=== PATIENT | female | born 1945 | race African-American/Black ===

== ENCOUNTER 2019-09-04 18:12 | Emergency (ER) | payer OTHER ==
[2019-09-04 18:18] VITALS: BP 90/50; PULSE 78; TEMP 98; BMI 24.7
[2019-09-04] MEDS ORDERED: diphenhydrAMINE HCL 25 MG CAPSULE (FP) PO ONE ×2 (18:18→18:22)
--- NOTE | 2019-09-04 18:19 | PDOC ---
Rapid Medical Evaluation Time Seen by Provider: 09/04/19 18:16 Medical Evaluation: Allergies Allergy/AdvReac Type Severity Reaction Status Date / Time No Known Allergies Allergy Verified 08/05/16 12:40 09/04/19 18:16 I have performed a brief in-person evaluation of this patient. The patient presents with a chief complaint of: itchy rash, upset stomach, vomiting. only itchy skin now Pertinent physical exam findings:stable and in NAD, non-focal I have ordered the following: benadryl The patient will proceed to the ED for further evaluation.
[2019-09-04] MEDS ORDERED: DEXAMETHASONE LIQUID 0.5 MG/5 ML PO ONE (19:34)
--- NOTE | 2019-09-04 19:37 | PDOC ---
History of Present Illness - General Chief Complaint: Rash Stated Complaint: ALLERGIC REACTION Time Seen by Provider: 09/04/19 18:16 - History of Present Illness Initial Comments: 09/04/19 19:34 74-year-old female with a past medical history of DVTs and pulmonary emboli hypothyroidism presents for evaluation of rash x1 day. First noticed after a dental cleaning which occurred this morning Past History - Past Medical History Allergies/Adverse Reactions: Allergies Allergy/AdvReac Type Severity Reaction Status Date / Time No Known Allergies Allergy Verified 09/04/19 18:18 Home Medications: Ambulatory Orders Acyclovir [Zovirax -] 400 mg PO PEDRO 08/05/16 Levothyroxine Sodium [Synthroid] 75 mcg PO DAILY 08/05/16 Magnesium 500 mg PO DAILY 08/05/16 Enoxaparin [Lovenox -] 70 mg SQ Q12H #60 disp.syrin 08/08/16 Anemia: No Asthma: No Cancer: No Cardiac Disorders: No CVA: No COPD: No CHF: No Dementia: No Diabetes: No GI Disorders: No Disorders: No HTN: No Hypercholesterolemia: No Liver Disease: No Seizures: No Thyroid Disease: Yes (HYPO) Other medical history: BLOOD CLOTS - Surgical History Abdominal Surgery: No Appendectomy: No Cardiac Surgery: No Cholecystectomy: Yes Lung Surgery: No Neurologic Surgery: No Orthopedic Surgery: No - Psycho Social/Smoking Cessation Hx Smoking Status: No Smoking History: Never smoked Have you smoked in the past 12 months: No Number of Cigarettes Smoked Daily: 0 If you are a former smoker, when did you quit?: 30 YRS AGO Hx Alcohol Use: Yes (SOCIAL) Drug/Substance Use Hx: No Substance Use Type: None Hx Substance Use Treatment: No Review of Systems - Review of Systems Constitutional: No: Fever HEENTM: No: Throat Pain, Throat Swelling, Difficulty Swallowing, Mouth Swelling Integumentary: Yes: Pruritus, Rash *Physical Exam - Vital Signs Last Vital Signs Temp Pulse Resp BP Pulse Ox 98 F 78 18 90/50 L 98 09/04/19 18:14 09/04/19 18:14 09/04/19 18:14 09/04/19 18:14 09/04/19 18:14 - Physical Exam Comments: 09/04/19 19:35 GENERAL: The patient is awake, alert, and fully oriented, in no acute distress. HEAD: Normal with no signs of trauma. EYES: sclera anicteric, conjunctiva clear. ENT: Ears normal NECK: Normal range of motion LUNGS: Breath sounds equal, clear to auscultation bilaterally. No wheezes, and no crackles. HEART: S1 and S2 without murmur, rub or gallop. ABDOMEN: Soft, nontender, normoactive bowel sounds. No guarding, no rebound. No masses. EXTREMITIES: Normal range of motion, no edema. No clubbing or cyanosis. No cords, erythema, or tenderness. NEUROLOGICAL: Cranial nerves II through XII grossly intact. Normal speech, normal gait. PSYCH: Normal mood, normal affect. SKIN: Warm, Dry, normal turgor, resolving wheals about the left flank ED Treatment Course - Medications Given in the ED: ED Medications Discontinued Medications Generic Name Dose Route Start Last Admin Trade Name Freq PRN Reason Stop Dose Admin Diphenhydramine HCl 25 mg 09/04/19 18:18 09/04/19 18:24 Benadryl - PO 09/04/19 18:19 25 mg ONCE ONE Administration Medical Decision Making - Medical Decision Making 09/04/19 19:35 Allergic rash we will treat with Decadron in the emergency room follow-up with primary care physician discussed use of Zyrtec at home and set of Benadryl which she is on board with Discharge - Discharge Information Problems reviewed: Yes Clinical Impression/Diagnosis: Allergic rash present on examination Condition: Stable Disposition: HOME - Admission No - Follow up/Referral Referrals: Haja Kowalski MD [Primary Care Provider] - - Patient Discharge Instructions Additional Instructions: Return to the emergency room for worsening symptoms. Without fail please follow -up with your primary care physician in 1 to 2 days for further evaluation and treatment options. Continue with Zyrtec at home as directed he was treated with a long-acting steroid and should require only treatment for itching which the antihistamine will help - Post Discharge Activity
[2019-09-04] MEDS ORDERED: DEXAMETHASONE SOD PHOSPHATE 10 MG/1 ML VIAL ONE (19:38)
== END 2019-09-04 19:48 | disposition home or self-care (01) ==
LOC: JERFT 18:12
DX: L23.89 Allergic contact dermatitis due to other agents (principal)
CPT/HCPCS: 99281-25

== ENCOUNTER 2021-12-07 15:27 | Observation (INO) | payer OTHER ==
[2021-12-07 16:20] LABS: EOS % 1.1 % (0-4.5); HEMATOCRIT 38.9 % (32.4-45.2); HEMOGLOBIN 12.8 GM/dL (10.7-15.3); LYMPH % 32.6 % (8-40); MCH 31.2 pg (25.7-33.7); MCHC 32.8 g/dl (32.0-36.0); MEAN CELL VOLUME 95.2 fl (80-96); MEAN PLT VOLUME 9.1 fl (7.5-11.1); MONO % 6.7 % (3.8-10.2); NEUT % 58.6 % (42.8-82.8); PLATELET COUNT 167 10^3/uL (134-434); RBC 4.09 M/mm3 (3.60-5.2); WHITE BLOOD COUNT 5.7 K/mm3 (4.0-10.0)
[2021-12-07] MEDS: SODIUM CHLORIDE 1,000 ML IV SCH (16:27)
[2021-12-07 16:40] LABS: MAGNESIUM 2.2 mg/dL (1.8-2.4)
[2021-12-07 16:41] LABS: ALBUMIN 3.9 g/dl (3.4-5.0); BLOOD UREA NITROGEN 14.9 mg/dL (7-18)
[2021-12-07 16:43] LABS: CREATININE 0.9 mg/dL (0.55-1.3)
[2021-12-07 16:44] LABS: PHOSPHOROUS 3.4 mg/dL (2.5-4.9); TOT PROT 7.3 g/dl (6.4-8.2)
[2021-12-07 16:46] LABS: BILIRUBIN,TOTAL 0.5 mg/dL (0.2-1)
[2021-12-07] MEDS ORDERED: ASPIRIN 81 MG CHEWABLE TABLETS PO ONE (16:56)
[2021-12-07] MEDS ORDERED: ASPIRIN 81 MG CHEWABLE TABLETS ONE (16:59)
[2021-12-07 17:00] LABS: INR 1.23 (0.83-1.09); PROTHROMBIN TIME (PATIENT) 14.2 SEC (9.7-13.0)
[2021-12-07 17:03] LABS: ACTIVATED PTT 30.9 SECONDS (25.2-36.5)
[2021-12-07] MEDS ORDERED: HEPARIN NA (PORCINE) 5,000 UNITS/ML 1ML VIAL SQ SCH (22:00)
[2021-12-07] MEDS ORDERED: APIXABAN 5 MG TABLET ONE (23:25)
[2021-12-07] MEDS: APIXABAN 5 MG TABLET PO SCH (23:27)
[2021-12-08] MEDS: LEVOTHYROXINE NA 50 MCG TABLET (FP) PO SCH (08:21)
[2021-12-08 08:34] LABS: BASO % 1.6 % (0-2.0); EOS % 1.8 % (0-4.5); HEMATOCRIT 37.5 % (32.4-45.2); HEMOGLOBIN 12.8 GM/dL (10.7-15.3); LYMPH % 33.5 % (8-40); MCH 32.1 pg (25.7-33.7); MCHC 34.1 g/dl (32.0-36.0); MEAN CELL VOLUME 94.2 fl (80-96); MEAN PLT VOLUME 9.3 fl (7.5-11.1); MONO % 8.3 % (3.8-10.2); NEUT % 54.8 % (42.8-82.8); PLATELET COUNT 141 10^3/uL (134-434); RBC 3.98 M/mm3 (3.60-5.2); RDW 13.7 % (11.6-15.6); WHITE BLOOD COUNT 4.4 K/mm3 (4.0-10.0)
[2021-12-08 08:59] LABS: BLOOD UREA NITROGEN 9.7 mg/dL (7-18); CALCIUM 9.3 mg/dL (8.5-10.1)
[2021-12-08 09:00] LABS: ALBUMIN 3.7 g/dl (3.4-5.0)
[2021-12-08 09:07] LABS: CREATININE 0.8 mg/dL (0.55-1.3)
[2021-12-08 09:09] LABS: BILIRUBIN,TOTAL 0.7 mg/dL (0.2-1)
[2021-12-08] MEDS: APIXABAN 5 MG TABLET PO SCH ×2 (10:18→21:30)
[2021-12-08] MEDS: SODIUM CHLORIDE 1,000 ML IV SCH (17:19)
[2021-12-09 02:37] LABS: EPI CELLS 3 /uL (0-25.1); HYALINE CASTS 0 /uL (0-3.1); PH,URINE 5.5 (5.0-8.0); URINE APPEARANCE CLEAR; URINE BACTERIA 8 /uL (0-1359); URINE BILIRUBIN NEGATIVE (NEGATIVE); URINE COLOR YELLOW; URINE GLUCOSE (UA) NEGATIVE (NEGATIVE); URINE KETONE TRACE (NEGATIVE); URINE LEUK ESTERASE NEGATIVE (NEGATIVE); URINE NITRITE NEGATIVE (NEGATIVE); URINE PROTEIN NEGATIVE (NEGATIVE); URINE RBC 5 /uL (0-23.9); URINE UROBILINOGEN 0.2 mg/dL (0.2-1.0); URINE WBC 2 /uL (0-25.8)
[2021-12-09 05:10] VITALS: BMI 23.9
[2021-12-09] MEDS: LEVOTHYROXINE NA 50 MCG TABLET (FP) PO SCH ×2 (05:28→06:07)
[2021-12-09 08:30] LABS: HEMATOCRIT 41.8 % (32.4-45.2); HEMOGLOBIN 13.7 GM/dL (10.7-15.3); MCH 31.4 pg (25.7-33.7); MCHC 32.8 g/dl (32.0-36.0); MEAN CELL VOLUME 95.7 fl (80-96); MEAN PLT VOLUME 10.2 fl (7.5-11.1); PLATELET COUNT 166 10^3/uL (134-434); RBC 4.37 M/mm3 (3.60-5.2); WHITE BLOOD COUNT 5.4 K/mm3 (4.0-10.0)
[2021-12-09 08:46] LABS: BLOOD UREA NITROGEN 10.9 mg/dL (7-18)
[2021-12-09 08:48] LABS: CALCIUM 9.6 mg/dL (8.5-10.1)
[2021-12-09 08:50] LABS: CREATININE 0.9 mg/dL (0.55-1.3)
[2021-12-09] MEDS: APIXABAN 5 MG TABLET PO SCH (09:26)
[2021-12-09] MEDS ORDERED: ASPIRIN 81 MG CHEWABLE TABLETS PO SCH (10:00)
[2021-12-09 15:20] VITALS: BP 105/57; PULSE 66; TEMP 98.4
== END 2021-12-09 18:06 | disposition home or self-care (01) ==
LOC: JER 15:27 → JERBED 16:58 → J4W 12-08 19:51
PROVIDERS: ATTEND Internal Medicine
PROC: 3E0337Z Introduction of Electrolytic and Water Balance Substance into Peripheral Vein, Percutaneous Approach (ICD-10-PCS; principal; 2021-12-07)
DX: G45.9 Transient cerebral ischemic attack, unspecified (principal); E03.9 Hypothyroidism, unspecified; M62.81 Muscle weakness (generalized); Z29.9 Encounter for prophylactic measures, unspecified; B00.89 Other herpesviral infection; Z87.891 Personal history of nicotine dependence
CPT/HCPCS: 36415; 70450-TC; 70551-TC; 72125-TC; 80048; 80053; 80061; 81003; 82550; 82607; 82962; 83036; 83090; 83735; 84100; 84443; 84484; 85025; 85027; 85610; 85730; 86850; 86900; 86901; 93005; 93010; 93306-TC; 93880-TC; 96360; 97116-GP; 97161-GP; 99285-25; C9803; G0378; U0003; U0005